=== PATIENT | female | born 1950 | race Caucasian/White ===

== ENCOUNTER 2021-03-20 14:49 | Outpatient (CLI) | payer MEDICARE, BC | END 2021-03-20 14:50 | disposition home or self-care (01) | LOC: CSHMAMMO 14:49 | PROVIDERS: ATTEND Family Medicine | DX: Z12.31 Encounter for screening mammogram for malignant neoplasm of breast (principal) | CPT/HCPCS: 77063; 77067 ==

== ENCOUNTER 2022-04-08 13:35 | Outpatient (CLI) | payer MEDICARE, BC | END 2022-04-08 13:36 | disposition home or self-care (01) | LOC: CSHMAMMO 13:35 | PROVIDERS: ATTEND Family Medicine | DX: Z12.31 Encounter for screening mammogram for malignant neoplasm of breast (principal) | CPT/HCPCS: 77063; 77067 ==

== ENCOUNTER 2023-05-06 11:02 | Outpatient (CLI) | payer MEDICARE, BC | END 2023-05-06 11:03 | disposition home or self-care (01) | LOC: CSHMAMMO 11:02 | PROVIDERS: ATTEND Family Medicine | DX: Z12.31 Encounter for screening mammogram for malignant neoplasm of breast (principal) | CPT/HCPCS: 77063; 77067 ==